=== PATIENT | female | born 1950 | race Two or more races ===

== ENCOUNTER 2024-02-10 20:17 | Emergency (ER) | payer OTHER ==
[~2024-02-10] VITALS: Ht 167.6 cm; Wt 118.2 kg
[2024-02-10 21:32] LABS: Urine Bacteria FEW /hpf (None Seen); Urine Blood Negative /uL (Negative); Urine Clarity Clear (Clear); Urine Color Light-Yellow (Yellow); Urine Protein, UAD Negative (Negative); Urine Specific Gravity 1.027 (1.001-1.035); Urine Urobilinogen Normal (Negative); Urine WBC 3 /hpf (0 - 5); Urine pH 5.5 (5.0-9.0)
[2024-02-10] MEDS: IBUPROFEN 400 MG TAB PO ONE (23:00)
[2024-02-10] MEDS ORDERED: LORA-1121 PO (23:05)
[2024-02-10 23:34] VITALS: BP 142/81; PULSE 75; RESP 16; TEMP 97.6; O2SAT 97
== END 2024-02-10 23:38 | disposition home or self-care (01) ==
LOC: ER 20:17
DX: R51.9 Headache, unspecified (principal); F41.9 Anxiety disorder, unspecified; E78.5 Hyperlipidemia, unspecified
CPT/HCPCS: 70450; 81001